=== PATIENT | male | born 1945 | race Caucasian/White ===

== ENCOUNTER → 2016-11-06 | Outpatient (CLI) | payer OTHER ==
[~2016-11-06] MED LIST: ACTOS15 MG PO; ALTACE 1.25 M1.25 M1 PO; AMBIEN 5 MG TABL5 M1; ASPIRIN EC325 M1 PO; FENOFIBRATE130 MG PO; LIPITOR80 MG PO; PLAVIX 75 MG TA75 M1 PO; PROTONIX40 M2 PO; TOPROL XL25 MG PO
== END ==
LOC: ULTRA 08:53
DX: I73.9 Peripheral vascular disease, unspecified (principal)

== ENCOUNTER → 2018-11-15 | Outpatient (CLI) | payer OTHER ==
[~2018-11-15] VITALS: Ht 162.6 cm; Wt 81.6 kg
[~2018-11-15] MED LIST changes: +ASPIR 8181 M1 PO; +ASPIR 8181 MG PO; +AVAPRO75 MG PO; +BENICAR40 MG PO; +BREO ELLIPTA 11 EACH INH; +BYSTOLIC 5 MG5 M1 PO; +CRESTOR20 MG PO; +METFORMIN HCL500 MG PO; +PACERONE 200 M200 M1 PO; +PROTONIX40 M1 PO; +ROSUVASTATIN CA20 MG PO; +SAVAYSA60 MG PO; +TUDORZA PRESS400 MCG INH; +VICTOZA0.6 MG/0.1 SUBQ; +XARELTO20 MG PO; +ZETIA10 MG PO; +ZOLPIDEM TARTRA10 MG PO
--- NOTE | 2018-11-15 14:38 | P ---
[facility] [place] [address] PROCEDURE REPORT Name: ALLEYERICH Elham Room #: REG [facility]#: [id number] Admission: 11/15/18 ������������������ Attend Phys: Too Galarza Discharge: ������������������ Date of : 45 Report #: [id number] THIS REPORT FOR: //name// CC: Too Saunders MD DATE OF SERVICE: 11/15/2018 PROCEDURE PERFORMED: Colonoscopy. HISTORY OF PRESENT ILLNESS: The patient is a 73-year-old male with a history of anemia. Upper endoscopy was just performed, which was normal. Biopsies were obtained to rule out celiac sprue. Apparently, the patient has had one or two recent stools that were heme negative. He denies any obvious bright red blood per rectum or melena. His weight has been stable. He does report mild right upper quadrant and right midsection abdominal pain at times. He has a known history of cholelithiasis on ultrasound in 2017. He underwent a PIPIDA scan in 03/2017, which showed a normal ejection fraction of his gallbladder and it did not reproduce pain at that time. He has also had a gastric emptying study that was normal. No family history of colon cancer. DESCRIPTION OF PROCEDURE: The risks and benefits of the procedure were explained to the patient; those risks including but not limited to bleeding, perforation and the risk of sedation. He understood these risks and gave informed consent. Sedation was given using propofol per Anesthesia. Next, a digital rectal exam was initially performed, which did show an enlarged prostate, small external hemorrhoids also noted, otherwise normal. Next, using a standard Olympus colonoscope, the scope was placed in the patient's anus and advanced under direct vision to the cecum. The overall prep was good. The cecum and ileocecal valve were normal in appearance. The ascending, transverse and descending colon were all normal. A few small diverticula were noted in the sigmoid colon. No evidence of inflammation; otherwise normal. The rectal mucosa was normal on retroflexion. Small nonbleeding internal hemorrhoids were noted. Also noted were small external hemorrhoids, nonbleeding. The scope was then withdrawn and the procedure terminated. The patient tolerated the procedure well. IMPRESSION: 1. Mild sigmoid diverticulosis. 2. Small internal and external hemorrhoids. No evidence of bleeding. 3. Otherwise, normal colonoscopy. RECOMMENDATIONS: No stigmata of bleeding on EGD or colonoscopy today. Apparently, the patient has had Hemoccult testing of stools that was negative. [facility] [address] [place] [address] PROCEDURE REPORT Name: ALLEYERICH Elham Room #: REG JOSIE Reeves#: [id number] Admission: 11/15/18 ������������������ Attend Phys: Too Galarza Discharge: ������������������ Date of : 45 Report #: [id number] If the patient is iron deficient, may benefit from oral iron therapy and monitoring hemoglobin. If anemia persists, could repeat stool Hemoccult testing or consider Hematology consultation. Thank you for allowing me to participate in his care. ��������������������������������������������� <ELECTRONICALLY SIGNED> ���������������������������������������� By: Too Hunter MD ��������������������������������������������� 11/15/18 1438 1157 1245 Too Hunter MD /nt
--- NOTE | 2018-11-15 14:38 | P ---
[facility] [place] [address] PROCEDURE REPORT Name: ERICH HAGER Elham Room #: REG [facility]#: [id number] Admission: 11/15/18 ������������������ Attend Phys: Too Galarza Discharge: ������������������ Date of : 45 Report #: [id number] THIS REPORT FOR: //name// CC: Too Saunders MD DATE OF SERVICE: 11/15/2018 PROCEDURE PERFORMED: Upper endoscopy with biopsies. HISTORY OF PRESENT ILLNESS: The patient is a 73-year-old male with a history of anemia, apparently has had Hemoccult testing of stools at least once, maybe twice recently that was negative. He denies any obvious bright red blood per rectum or melena. He denies any symptoms at this time other than some intermittent abdominal pain in his right upper and right mid quadrant at times. Plan is for EGD and colonoscopy today. DESCRIPTION OF PROCEDURE: The risks and benefits of the procedure were explained to the patient, those risks including but not limited to bleeding, perforation, the risk of sedation. He understood these risks and gave informed consent. Sedation was given using propofol per anesthesia. Next using a standard Olympus upper endoscope, the scope was placed in the patient's mouth and advanced under direct vision through the esophagus, stomach and into the second portion of the duodenum. The esophagus was normal throughout. The GE junction was normal. Overall, the gastric mucosa was normal. No evidence of ulcerations or erosions. The pylorus was normal and patent. The duodenal bulb, first and second portion were all normal. Biopsies were obtained to rule out the possibility of celiac sprue. The scope was then withdrawn and the procedure terminated. The patient tolerated the procedure well. IMPRESSION: Normal upper endoscopy. RECOMMENDATIONS: 1. We will proceed with colonoscopy next today. 2. Await biopsy results. Thank you for allowing me to participate in his care. ��������������������������������������������� <ELECTRONICALLY SIGNED> ���������������������������������������� By: Too Hunter MD ��������������������������������������������� 11/15/18 1438 1131 1226 Too Hunter MD /nt
--- NOTE | 2018-11-16 17:06 | PATH ---
[facility] [address] [place] [address] PATHOLOGY RPT PROCEDURE Name: ERICH BOBO Room #: REG JOSIE Reeves#: [id number] ������������������ Admission: 11/15/18 ������������������ Date of : 45 Discharge: Report #: [id number] Path Case #: [id number] [facility] Accession Number: [id number] . 01 Material submitted: . duodenum - DUODENAL BX R/O SPRUE . 01 Clinical history: . Pre-op diagnosis: Anemia Post-op diagnosis: Internal hemorrhoids R/O sprue . 02 Diagnosis: Small bowel mucosa, duodenum rule out sprue, endoscopic biopsy: - No diagnostic abnormalities. - Negative for villous blunting or increase in intraepithelial lymphocytes. (IUV:supervisor electronics inspection; 11/16/2018) MBR/11/16/2018 . 02 Electronically signed: . Criss Ledbetter MD, Pathologist NPI- [id number] . 01 Gross description: . The specimen is received in formalin, labeled "Erich Bobo, duodenal biopsy". Received are four segments of pale porter soft tissue ranging in size from 0.2 to 0.5 cm in maximum dimensions. The specimen is submitted entirely in cassette A1. (CAA; 11/15/2018) QAC/QAC . 02 Pathologist provided ICD-10: D64.9 . 02 CPT . 733068 Specimen Comment: A courtesy copy of this report has been sent to Specimen Comment: [phone], . Specimen Comment: Report sent to / DR MARIE Performed at: [address], [place] [id number] MD Sudarshan Clement MD Phone: [phone] Performed at: [id number] [address] [address] PATHOLOGY RPT PROCEDURE Name: ERICH BOBO Room #: REG [facility].#: [id number] ������������������ Admission: 11/15/18 ������������������ Date of : 45 Discharge: Report #: [id number] Path Case #: [id number] MD Criss Ledbetter MD Phone: [phone]
== END | disposition home or self-care (01) ==
LOC: GI 08:33
DX: K57.30 Diverticulosis of large intestine without perforation or abscess without bleeding (principal); K64.8 Other hemorrhoids; K64.4 Residual hemorrhoidal skin tags; D64.9 Anemia, unspecified; I10 Essential (primary) hypertension; I25.10 Atherosclerotic heart disease of native coronary artery without angina pectoris; E78.00 Pure hypercholesterolemia, unspecified; J43.9 Emphysema, unspecified; I73.9 Peripheral vascular disease, unspecified; N28.9 Disorder of kidney and ureter, unspecified; Z95.1 Presence of aortocoronary bypass graft; Z98.890 Other specified postprocedural states; Z79.899 Other long term (current) drug therapy; Z85.828 Personal history of other malignant neoplasm of skin; K21.9 Gastro-esophageal reflux disease without esophagitis; E11.9 Type 2 diabetes mellitus without complications; Z79.4 Long term (current) use of insulin; Z87.891 Personal history of nicotine dependence; Z87.19 Personal history of other diseases of the digestive system; Z96.651 Presence of right artificial knee joint; Z87.442 Personal history of urinary calculi
CPT/HCPCS: 62110; 62900

== ENCOUNTER → 2019-03-16 | Outpatient (CLI) | payer OTHER ==
[~2019-03-16] MED LIST changes: +INJECTAFER750 MG/15 IV
[2019-03-16 11:12] VITALS: BP 125/69
[2019-03-16 12:00] VITALS: BP 148/71
--- NOTE | 2019-03-16 12:00 | NUR ---
IN FOR 1ST OF 2 INJECTAFER INFUSIONS FOR IRON DEFICIENCY ANEMIA. STATES HE HAS BEEN SCOPED BUT THEY CANNOT FIND SOURCE OF BLOOD LOSS, HOWEVER, HIS HGB HAS BEEN TRENDING DOWN. NOT MANY PHYSICAL COMPLAINTS EXCEPT LEG CRAMPING AT NITE. TEACHING DONE WITH PT. INJECTAFER INFUSED OVER 30 MIN THEN PT WATCHED 30 MIN POST. NO S/S REACTION, TOLERATED WELL, VSS. DISMISSED IN STABLE CONDITION. SCHEDULED TO RETURN IN ONE WEEK.
[2019-03-16 12:25] VITALS: BP 144/75
[2019-03-16 12:51] VITALS: BP 148/71
== END ==
LOC: OPONC 10:47
DX: D50.9 Iron deficiency anemia, unspecified (principal)
CPT/HCPCS: 95000

== ENCOUNTER → 2019-03-23 | Outpatient (CLI) | payer OTHER ==
[2019-03-23 09:11] VITALS: BP 106/60
[2019-03-23 10:05] VITALS: BP 128/62
[2019-03-23 10:36] VITALS: BP 137/68
--- NOTE | 2019-03-23 10:40 | NUR ---
PT HERE FOR 2ND AND FINAL INJECTAFER INFUSION. REPORTS TOLERATING LAST WEEK'S INFUSION WITHOUT INCIDENT BUT DID NOTICE THAT HIS LEG CRAMPS (PRE-EXISTING) SEEMED TO BE GETTING WORSE. THESE BOTHER HIM AT NIGHT. ADVISED PT TO F/U WITH DR. MARIE REGARDING THIS. TODAY'S IRON INFUSED OVER 30 MIN, PT WATCHED FOR 30 MIN POST. VSS. DISCUSSED F/U PLAN WHICH INCLUDES HAVING LABS DONE AGAIN WITH DR. MARIE. DISMISSED IN STABLE CONDITION.
== END ==
LOC: OPONC 01:34
DX: D64.9 Anemia, unspecified (principal); E61.1 Iron deficiency
CPT/HCPCS: 95000

== ENCOUNTER 2019-05-03 09:06 | Emergency (ER) | payer OTHER ==
[~2019-05-03] VITALS: Ht 160 cm; Wt 81.7 kg
[2019-05-03 10:32] LABS: HEMOGLOBIN 13.1 gm/dL (14.0-18.0); MCHC 32.7 g/dL (28.0-37.0); MCV 85.6 fL (80.0-100.0); RBC 4.67 mil/uL (4.50-6.00); RDW 27.7 % (10.5-14.5); WBC 6.1 thou/uL (4.0-11.0)
[2019-05-03 10:44] LABS: CREATININE 1.2 mg/dL (0.7-1.3); POTASSIUM 4.8 mmol/L (3.5-5.1)
[2019-05-03 10:48] LABS: CALCIUM 9.1 mg/dL (8.5-10.1)
[2019-05-03 11:07] VITALS: BP 148/77
== END 2019-05-03 11:13 | disposition home or self-care (01) ==
LOC: ER 09:06
PROVIDERS: Emergency Medicine
DX: R04.0 Epistaxis (principal); I10 Essential (primary) hypertension; I25.10 Atherosclerotic heart disease of native coronary artery without angina pectoris; E78.00 Pure hypercholesterolemia, unspecified; E11.9 Type 2 diabetes mellitus without complications; J44.9 Chronic obstructive pulmonary disease, unspecified; K21.9 Gastro-esophageal reflux disease without esophagitis; Z96.651 Presence of right artificial knee joint; Z87.442 Personal history of urinary calculi; Z86.2 Personal history of diseases of the blood and blood-forming organs and certain disorders involving the immune mechanism; Z95.5 Presence of coronary angioplasty implant and graft; Z87.891 Personal history of nicotine dependence

== ENCOUNTER → 2019-06-22 | Outpatient (CLI) | payer OTHER | LOC: SJCVCIMAG 14:25 → SJCVC 14:25 | DX: I65.23 Occlusion and stenosis of bilateral carotid arteries (principal); I25.10 Atherosclerotic heart disease of native coronary artery without angina pectoris; I10 Essential (primary) hypertension; E78.00 Pure hypercholesterolemia, unspecified; E11.51 Type 2 diabetes mellitus with diabetic peripheral angiopathy without gangrene; J44.9 Chronic obstructive pulmonary disease, unspecified; H53.2 Diplopia; Z95.1 Presence of aortocoronary bypass graft ==

== ENCOUNTER → 2020-01-17 | Outpatient (CLI) | payer OTHER | LOC: SJCVCIMAG 07:09 | PROVIDERS: ATTEND Internal Medicine Cardiovascular Disease | DX: I65.23 Occlusion and stenosis of bilateral carotid arteries (principal); I73.9 Peripheral vascular disease, unspecified; J44.9 Chronic obstructive pulmonary disease, unspecified; E11.9 Type 2 diabetes mellitus without complications; H53.2 Diplopia; Z95.1 Presence of aortocoronary bypass graft ==

== ENCOUNTER → 2020-01-25 | Outpatient (CLI) | payer OTHER | LOC: MRI 12:38 | PROVIDERS: ATTEND Internal Medicine Cardiovascular Disease | DX: I65.23 Occlusion and stenosis of bilateral carotid arteries (principal); H53.2 Diplopia; M62.50 Muscle wasting and atrophy, not elsewhere classified, unspecified site; R90.82 White matter disease, unspecified; I67.82 Cerebral ischemia; G93.89 Other specified disorders of brain ==

== ENCOUNTER → 2020-08-01 | Outpatient (CLI) | payer OTHER | LOC: SJCVCIMAG 07:32 | PROVIDERS: ATTEND Internal Medicine Cardiovascular Disease | DX: R94.31 Abnormal electrocardiogram [ECG] [EKG] (principal); I48.0 Paroxysmal atrial fibrillation; I70.201 Unspecified atherosclerosis of native arteries of extremities, right leg; I10 Essential (primary) hypertension; E78.00 Pure hypercholesterolemia, unspecified; I65.23 Occlusion and stenosis of bilateral carotid arteries; I25.810 Atherosclerosis of coronary artery bypass graft(s) without angina pectoris; I25.5 Ischemic cardiomyopathy; G47.33 Obstructive sleep apnea (adult) (pediatric); M19.90 Unspecified osteoarthritis, unspecified site; J43.9 Emphysema, unspecified; Z95.1 Presence of aortocoronary bypass graft; Z86.16 Personal history of COVID-19; Z79.899 Other long term (current) drug therapy; Z79.82 Long term (current) use of aspirin; Z87.891 Personal history of nicotine dependence ==

== ENCOUNTER → 2021-03-06 | Outpatient (CLI) | payer OTHER | LOC: SJCVCIMAG 08:39 | PROVIDERS: ATTEND Internal Medicine Cardiovascular Disease | DX: I65.22 Occlusion and stenosis of left carotid artery (principal); I25.810 Atherosclerosis of coronary artery bypass graft(s) without angina pectoris; E78.00 Pure hypercholesterolemia, unspecified; I10 Essential (primary) hypertension; I48.0 Paroxysmal atrial fibrillation; I73.9 Peripheral vascular disease, unspecified; E11.9 Type 2 diabetes mellitus without complications; D68.59 Other primary thrombophilia; Z95.1 Presence of aortocoronary bypass graft; I48.91 Unspecified atrial fibrillation; J44.9 Chronic obstructive pulmonary disease, unspecified; I25.10 Atherosclerotic heart disease of native coronary artery without angina pectoris; M19.90 Unspecified osteoarthritis, unspecified site; Z86.16 Personal history of COVID-19; Z79.82 Long term (current) use of aspirin; Z79.899 Other long term (current) drug therapy; Z87.891 Personal history of nicotine dependence; Z79.84 Long term (current) use of oral hypoglycemic drugs ==

== ENCOUNTER → 2021-04-29 | Outpatient (CLI) | payer OTHER ==
[~2021-04-29] MED LIST changes: +CENTRUM SILVER1 EAC2 PO; +CHILDREN'S ASPI81 M1 PO; +FLUTICASONE-SA1 EAC4 INH; +INCRUSE ELLI62.5 MCG INH; +JARDIANCE25 MG PO; +LOSARTAN POTASS50 MG PO; +MAGNESIUM OXID500 M1 PO; +POTASSIUM GLUCO99 M2 PO; -PROTONIX40 M1 PO; +SPIRIVA RESPIMAT4 G1 INH; +TOPROL XL50 MG PO; +VITAMIN D350 MC3 PO
[2021-04-29 10:20] LABS: URINE BILIRUBIN NEGATIVE (Negative); URINE BLOOD NEGATIVE (Negative); URINE CLARITY CLEAR; URINE COLOR YELLOW; URINE GLUCOSE-RANDOM* 3+ (Negative); URINE KETONES NEGATIVE (Negative); URINE LEUKOCYTES-REFLEX NEGATIVE (Negative); URINE NITRITE-REFLEX NEGATIVE (Negative); URINE PROTEIN (DIPSTICK) NEGATIVE (Negative); URINE UROBILINOGEN 0.2 E.U./dl (0.2-1.0)
[2021-04-29 10:21] LABS: HEMATOCRIT 46.6 % (42.0-52.0); HEMOGLOBIN 15.3 gm/dL (14.0-18.0); MCH 30.3 pg (26.0-34.0); MCHC 32.9 g/dL (28.0-37.0); MCV 92.2 fL (80.0-100.0); RBC 5.06 mil/uL (4.50-6.00); RDW 13.9 % (10.5-14.5); WBC 6.9 thou/uL (4.0-11.0)
[2021-04-29 10:33] LABS: INR 1.05; PROTIME 11.4 Seconds (10.5-12.1)
[2021-04-29 10:34] LABS: ALBUMIN 3.7 g/dL (3.4-5.0); CREATININE 1.3 mg/dL (0.7-1.3); POTASSIUM 4.4 mmol/L (3.5-5.1)
[2021-04-29 23:06] LABS: GLYCOHEMOGLOBIN (HGB A1C) 6.1 % (4.8-5.6)
--- NOTE | 2021-04-30 08:03 | EKG ---
[place] [address] [facility] [place] [address] ELECTROCARDIOGRAM REPORT Name: ERICH HAGER [id number] Admission: 04/29/21 Attend Phys: Giuseppe García MD Discharge: Date of : 45 Report #: [id number] [facility] Test Date: 2021-04-29 Test Time: 10:20:27 Pat Name: ERICH HAGER Department: Room: Gender: Market Survey Representative: Elham [place] : 1945 Requested By: Giuseppe García Order Number: [id number] MD: Glenn Dudley Measurements Intervals Terrell Rate: 55 P: -32 TN: 171 QRS: 6 QRSD: 116 T: 7 QT: 410 QTc: 393 Interpretive Statements Sinus bradycardia Nonspecific intraventricular conduction delay Compared to ECG 03/20/2017 07:33:39 No significant changes Electronically Signed On 04-30-2021 8:03:09 SAFETY EQUIPMENT TESTER by Glenn Dduley [email or web address] <ELECTRONICALLY SIGNED> By: Glenn Dudley MD, [facility] 04/30/21 0803 1020 1020 Glenn Dudley MD, FACC /EPI
== END ==
LOC: LAB 08:48 → PAC 08:48 → LAB 16:32
PROVIDERS: ATTEND Orthopaedic Surgery
DX: R00.1 Bradycardia, unspecified (principal); M16.11 Unilateral primary osteoarthritis, right hip

== ENCOUNTER 2021-05-06 07:26 | Inpatient (IN) | payer OTHER ==
[~2021-05-06] VITALS: Ht 160 cm; Wt 81.6 kg
--- NOTE | 2021-05-06 16:01 | NUR ---
ASSUMED PT CARE AT 1510. PT IS ALERT & ORIENTED X4. PT HAS IV SITE ON RAC 20 GAUGE RUNNING D5 1/2 NS @100ML/HR. PT IS ON 2L NC O2 FOR COMFOR.T PT USES URINAL. PT HAS BILATERAL THIGH HIGH FITO HOSES, ICE PACK AND TAVARES DRESSING. FINISHED ADMISSION. PHYSICAL THERAPY WAS WORKING WITH PT THIS AFTERNOON. PT WAS AT THE BEDSIDE. WILL CONTINUE TO MONITOR PT. FOLLOW POC.
[2021-05-06 17:17] VITALS: BP 145/45
[2021-05-06 19:42] VITALS: BP 142/77
--- NOTE | 2021-05-07 00:09 | NUR ---
PT ALERT AND ORIENTED X 4. 02 ON AT 2L PER NC. IV INFUSING ORDERED. RIGHT HIP TAVARES DRESSING C/D/I. ICE TO RIGHT HIP PRN. PT C/O PAIN IN RIGHT GROIN. SCHEDULED MS CONTIN GIVEN AND PT VERBALIZED RELIEF OF PAIN. PT ALSO C/O PAIN IN HIS LEFT FOOT. FOOT WARM, PEDAL PULSE PALPABLE. PT APPEARS TO BE SLEEPING ON HOURLY ROUNDS.
[2021-05-07 04:42] VITALS: BP 116/63
[2021-05-07 07:05] VITALS: BP 105/67
--- NOTE | 2021-05-07 09:22 | NUR ---
Right hip. He been up working with therapy already. Outpatient therapy set up already;. He has a cane and fww. No anticipated needs for dc today.
--- NOTE | 2021-05-07 09:28 | O ---
[facility] [place] [address] OPERATIVE REPORT Name: ERICH HAGER Room #: 442-P [facility] M.R.#: [id number] Admission: 05/06/21 Attend Phys: Giuseppe García MD Discharge: Date of : 45 Report #: [id number] THIS REPORT FOR: cc: Goyo Saunders MD, Stanley P. MD Abraham, Scott M. MD ~ DATE OF SERVICE: 05/06/2021 PREOPERATIVE DIAGNOSIS: Right hip osteoarthritis. POSTOPERATIVE DIAGNOSIS: Right hip osteoarthritis. PROCEDURE: Right total hip arthroplasty. SURGEON: Giuseppe García MD AVIONICS REPAIR TECHNICIAN: Nikky Garcia PA-C INDICATION FOR AVIONICS REPAIR TECHNICIAN: Throughout the case, extensive retraction, dislocation and reduction was required. This was afforded to me by my surgical supply assistant. ANESTHESIA: General. IMPLANTS: A [employer] size 14 high offset Synergy press-fit stem, a size 52 R3 acetabular cup with 1 acetabular screw for backup fixation and a size 36+4 Oxinium head. Additionally, I placed a single cord cerclage cable for prophylactic fixation. ESTIMATED BLOOD LOSS: 50 mL. COMPLICATIONS: None. SPECIMENS: None. CONDITION UPON LEAVING THE OR: Stable. INDICATIONS FOR PROCEDURE: The patient is a 75-year-old gentleman with right hip osteoarthritis. He had failed conservative measures for this and after discussion with him, he elected for right total hip arthroplasty. DESCRIPTION OF PROCEDURE: Risks, benefits, alternatives, complications were discussed in detail with the patient including but not limited to risk of anesthesia, risk of damage to nerves, arteries, blood vessels, risk for infection, bleeding, risk for continued hip pain, leg length discrepancy, instability and need for reoperation. Informed consent was obtained from the [facility] [address] [place] [address] OPERATIVE REPORT Name: ALLEYERICH Elham Room #: 442-P [facility] .R.#: [id number] Admission: 05/06/21 Attend Phys: Giuseppe García MD Discharge: Date of : 45 Report #: [id number] patient. The right hip was appropriately marked in the preoperative holding area. IV Ancef was given for preoperative antibiotics. He was brought to the operating room and placed in supine position on the operating table. General anesthesia was induced without complication. He was placed in the left lateral decubitus position with the right hip uppermost. Right hip and lower extremity were prepped and draped in normal sterile fashion. Timeout was performed, properly identifying the patient, procedure as well as the instrumentation and implants. All in the operating room were in agreement. Standard posterior approach to the right hip was made with 10 blade through the skin. Dissection was taken down to fascia with Bovie cautery and Saxena elevator was used to clean off the fascia. Fresh 10 blade was used to make a fascial incision. This was taken proximally and distally with curved Brower scissors. Charnley retractor was placed. Trochanteric bursa was taken down with Bovie cautery. Piriformis tendon was identified, tagged and taken down with Bovie. Short external rotators were also taken down with Bovie cautery. Capsulotomy was made and capsule ends were tagged for later repair. Hip was dislocated and there was extensive osteoarthritic change to the femoral head. Femoral neck cut was made 1 cm proximal to the lesser trochanter based on preoperative templating. The femoral head was removed. Deep acetabular retractors were placed. Labrum was removed sharply. Pulvinar was removed with Bovie cautery. Acetabulum was then sequentially reamed up to a size 52, at which point there was excellent bleeding cancellous bone. A size 51 trial cup was placed, found to have a good fit. Final size 52 R3 acetabular cup was then placed and seated. One acetabular screw was placed for backup fixation and polyethylene liner for a 36 head was placed. Attention was turned to the femur. This was reamed and broached up to a size 14, at which point the size 14 broach was stable, was trialed with a high offset neck and a 36+0 head. Hip was reduced, taken through range of motion, found to be stable, found to be somewhat short on the right compared to left. It was felt we can make up for this with the final implant. Hip was dislocated, broach was removed and a single Accord cerclage cable was placed around the proximal femur for prophylactic fixation and a 14 high offset Synergy press-fit stem was placed and seated. This was then trialed with a 36+4 head. Hip was reduced, taken through range of motion, found to be stable, found to have equal leg lengths. Hip was dislocated. The trial head was removed and final size 36+4 Oxinium head was placed. Hip was reduced, taken through range of motion, found to be stable, found to have equal leg lengths. Hip was thoroughly irrigated with normal saline. A periarticular injection consisting of morphine, ropivacaine, epinephrine, Toradol was placed around the hip joint capsule. A gram of vancomycin was placed deep in the joint. The capsule and piriformis were repaired with 0 FiberWire. Fascia was closed with 0 Vicryl. Skin was closed with 2-0 Vicryl, skin staple and a TAVARES dressing was applied. [address] [address] OPERATIVE REPORT Name: ERICH HAGER Room #: 442-P [facility].R.#: [id number] Admission: 05/06/21 Attend Phys: Giuseppe García MD Discharge: Date of : 45 Report #: [id number] The patient tolerated this procedure well and went to recovery room under care of anesthesia postoperatively. <ELECTRONICALLY SIGNED> By: Giuseppe García MD 05/07/21 0928 1335 1645 Giuseppe García MD /nt
[2021-05-07 09:52] VITALS: BP 106/65
--- NOTE | 2021-05-07 10:02 | NUR ---
ASSUMED PT CARE THIS AM. PHYSICAL AND OCCUPATIONAL THERAPY WAS WORKING WITH PT THIS AM. PER PHYSICAL THERAPY OK AND SAFE TO DC. REMOVED IV. PT TOLERATED DIET AND MEDICATION WELL. EDUCATED AND INFORMED PT ABOUT DC INSTRUCTIONS. PT SIGNED DC FORMS. AWAITING FOR TRANSPORTATION TO PICK HIM UP.
== END 2021-05-07 10:50 | disposition home or self-care (01) | DRG 470 ==
LOC: OR 07:26 → 4S 14:36 → OR 14:37 → 4S 14:37
PROVIDERS: ADMIT Orthopaedic Surgery; ATTEND Orthopaedic Surgery
PROC: 0SR906A Replacement of Right Hip Joint with Oxidized Zirconium on Polyethylene Synthetic Substitute, Uncemented, Open Approach (ICD-10-PCS; principal; 2021-05-06)
DX: M16.11 Unilateral primary osteoarthritis, right hip (principal); Z20.822 Contact with and (suspected) exposure to COVID-19
CPT/HCPCS: 10102; 10195; 50010; 50101; 50382; 50414; 51412; 53000; 53078; 53368; 56524; 56528; 56530; 57095; 57103; 57496; 62110; 62900; 70005

== ENCOUNTER → 2021-06-21 | Outpatient (CLI) | payer OTHER | LOC: SJCVCIMAG 07:33 | PROVIDERS: ATTEND Internal Medicine Cardiovascular Disease | DX: M79.604 Pain in right leg (principal); I73.9 Peripheral vascular disease, unspecified ==